=== PATIENT | female | born 1970 | race Caucasian/White ===

== ENCOUNTER → 2016-06-12 | Outpatient (CLI) | payer OTHER ==
[~2016-06-12] MED LIST: ALEVE220 MG PO; ASPIR-LOW81 MG PO; ATORVASTATIN CA80 MG PO; BEE POLLEN550 MG PO; CLOPIDOGREL75 MG PO; CYMBALTA60 MG PO; DAILY VALUE1 EACH PO; FISH OIL PO; KLONOPIN0.5 M1 PO; LOPRESSOR25 MG PO; MAGNESIUM400 M1 PO; NEURONTIN800 MG PO; NICOTINE PATCH1 EAC2 TD; NITROSTAT0.4 MG SL; OXYCODONE-APAP1 EACH PO; PROAIR HFA8.5 GM IH; PROTONIX40 MG PO; SUBOXONE 8 MG-1 EAC2 SL; TYLENOL REGULA325 MG PO
== END | disposition home or self-care (01) ==
LOC: RAD 10:00
DX: I65.22 Occlusion and stenosis of left carotid artery (principal); Z98.890 Other specified postprocedural states; E04.1 Nontoxic single thyroid nodule; R59.0 Localized enlarged lymph nodes
CPT/HCPCS: 93880

== ENCOUNTER → 2016-07-12 | Outpatient (CLI) | payer OTHER | END | disposition home or self-care (01) | LOC: RAD 06-19 11:00 | DX: I65.22 Occlusion and stenosis of left carotid artery (principal); R94.39 Abnormal result of other cardiovascular function study; Z98.890 Other specified postprocedural states | CPT/HCPCS: 70496; 70498 ==

== ENCOUNTER 2016-09-27 12:26 | Observation (INO) | payer OTHER ==
[~2016-09-27] VITALS: Ht 157.5 cm; Wt 85.0 kg
[2016-09-27 15:45] LABS: ADD MIUA? YES; BILIRUBIN NEGATIVE; BLOOD NEGATIVE; COLOR YELLOW ((YELLOW)); GLUCOSE (STRIP) NEGATIVE; KETONES NEGATIVE; LEUKOCYTES NEGATIVE; NITRITE NEGATIVE; PROTEIN (STRIP) NEGATIVE; UROBILINOGEN 0.2 MG/DL (0.2-1.0)
[2016-09-27 15:57] LABS: EOSINOPHIL (%) 4.1 % (0-5); EOSINOPHIL COUNT 0.3 K/uL (0-0.3); HEMATOCRIT 35.7 % (36.0-46.0); IMMATURE GRANULOCYTE (%) 0.1 % (0.0-0.7); INSTRUMENT ABS NEUTROPHIL CT 4.5 K/uL; LYMPHOCYTE COUNT 1.6 K/uL (1.0-2.8); MCH 25.6 PG (29.0-34.0); MCHC 31.7 G/DL (30.0-36.0); MEAN PLAT.VOLUME 10.1 uM^3 (9.5-12.4); MONOCYTE (%) 5.7 % (3-12); MONOCYTE COUNT 0.4 K/uL (0-0.8); NEUTROPHIL (%) 66.4 % (45-76); NEUTROPHIL COUNT 4.5 K/uL (1.8-6.4); PLATELET COUNT 251 K/uL (156-360); RBC DIS.WIDTH-CV 13.5 % (11.8-14.6); RBC DIS.WIDTH-SD 39.7 % (39-53); RED BLOOD COUNT 4.41 M/uL (3.80-5.20); WHITE BLOOD COUNT 6.8 K/uL (4.1-10.2)
[2016-09-27 16:07] LABS: CHLORIDE 104 mEq/L (99-109); SODIUM 140 mEq/L (136-147)
[2016-09-27 16:09] LABS: GLUCOSE 116 mg/dL (70-99)
[2016-09-27 16:10] LABS: ANION GAP 11 MEQ/L (2-14)
[2016-09-27 16:11] LABS: TOTAL BILIRUBIN 0.4 mg/dL (0.0-1.0)
[2016-09-27 16:12] LABS: EPITHELIAL CELLS RARE /HPF; RED BLOOD CELLS RARE /HPF (0-5); WHITE BLOOD CELLS 0-5 /HPF (0-5)
[2016-09-27 16:12] LABS: ALKALINE PHOSPHATASE 61 IU/L (3-129)
[2016-09-27 16:13] LABS: AMORPHOUS URATES CRYSTALS 2+; BACTERIA 1+ /HPF; CASTS NONE SEEN /LPF; CRYSTALS PRESENT; MUCUS NONE SEEN /LPF; UCUL ADDED? NO
[2016-09-27 16:13] LABS: GFR ESTIMATE (CALCULATED) > 59 mL/min/
[2016-09-27 16:14] LABS: UREA NITROGEN (BUN) 10 mg/dL (9-23)
[2016-09-27 16:18] LABS: TROP-I INTERPRETATION NEGATIVE; TROPONIN-I < 0.01 ng/mL (0.0-0.30)
[2016-09-27 16:21] LABS: QUANTITATIVE HCG < 4.0 MIU/ML
[2016-09-27 16:42] LABS: SAMPLE HEMOLYSIS CHECK 0; SAMPLE ICTERIC CHECK 0; SAMPLE LIPEMIA CHECK 0
[2016-09-27 16:54] LABS: D-DIMER ELISA 2.59 mg/L FEU (< 0.57)
[2016-09-27 17:39] LABS: ERTH.SED.RATE 33 MM/HR (0-20)
[2016-09-27] MEDS ORDERED: PRAVACHOL80 MG PO (21:55)
[2016-09-27] MEDS ORDERED: PLAVIX75 MG PO (21:55)
[2016-09-27] MEDS ORDERED: LO-DOSE ASPIRIN81 M2 PO (21:56)
[2016-09-27] MEDS ORDERED: NAPROXEN500 MG PO (21:56)
[2016-09-27] MEDS ORDERED: LYRICA100 MG PO (21:57)
[2016-09-27] MEDS ORDERED: HYDROCHLOROTHIA25 MG PO (21:59)
[2016-09-27] MEDS ORDERED: LISINOPRIL5 MG PO (21:59)
[2016-09-27] MEDS ORDERED: FISH OIL 1,0001 EAC7 PO ×2 (21:59)
[2016-09-27] MEDS ORDERED: TUMERIC PO (21:59)
[2016-09-27] MEDS ORDERED: CYANOCOBALAM1000 MCG PO (22:00)
[2016-09-27] MEDS ORDERED: ERGOCALCIF50000 UNIT PO (22:00)
[2016-09-27] MEDS ORDERED: CO Q-1050 MG PO (22:00)
[2016-09-27] MEDS ORDERED: CLONAZEPAM0.5 MG PO (22:01)
[2016-09-28 00:26] VITALS: BP 146/83
[2016-09-28 01:29] LABS: TROP-I INTERPRETATION NEGATIVE; TROPONIN-I < 0.01 ng/mL (0.0-0.30)
[2016-09-28 04:19] VITALS: BP 100/57
[2016-09-28 05:26] LABS: HEMATOCRIT 30.4 % (36.0-46.0); MCH 26.5 PG (29.0-34.0); MCHC 32.2 G/DL (30.0-36.0); MCV 82.2 FL (83-99); MEAN PLAT.VOLUME 10.3 uM^3 (9.5-12.4); PLATELET COUNT 222 K/uL (156-360); RBC DIS.WIDTH-CV 13.8 % (11.8-14.6); RBC DIS.WIDTH-SD 40.7 % (39-53); WHITE BLOOD COUNT 5.5 K/uL (4.1-10.2)
[2016-09-28 05:45] LABS: TROP-I INTERPRETATION NEGATIVE; TROPONIN-I < 0.01 ng/mL (0.0-0.30)
[2016-09-28 06:07] LABS: ANION GAP 8 MEQ/L (2-14); CHLORIDE 103 MEQ/L (99-109); GFR ESTIMATE (CALCULATED) > 59 mL/min/; GLUCOSE 114 mg/dL (70-99); POTASSIUM 3.7 MEQ/L (3.7-5.4); SAMPLE HEMOLYSIS CHECK 0; SAMPLE ICTERIC CHECK 0; SAMPLE LIPEMIA CHECK 0; SODIUM 140 MEQ/L (136-147); UREA NITROGEN (BUN) 11 mg/dL (9-23)
[2016-09-28 07:28] VITALS: BP 99/51
[2016-09-28 11:47] VITALS: BP 92/54
[2016-09-28] MEDS ORDERED: BUPROPION XL150 MG PO (14:37)
[2016-09-30 15:49] LABS: TOXOPLASMA IgG+ <7.20 IU/mL (<7.20)
[2016-09-30 16:50] LABS: TOXOPLASMA IgM (ACUTE ONLY)+ <8.00 AU/mL (<8.00)
== END 2016-09-28 16:21 | disposition home or self-care (01) ==
LOC: EME 12:26 → 5WEST 22:46 → EDOF 22:46 → 5WEST 09-28 00:15
PROVIDERS: Emergency Medicine; Hospitalist
DX: R07.89 Other chest pain (principal); J81.1 Chronic pulmonary edema; L98.9 Disorder of the skin and subcutaneous tissue, unspecified; G89.29 Other chronic pain; F33.1 Major depressive disorder, recurrent, moderate; I10 Essential (primary) hypertension; D64.9 Anemia, unspecified; I25.10 Atherosclerotic heart disease of native coronary artery without angina pectoris; F90.9 Attention-deficit hyperactivity disorder, unspecified type; E66.9 Obesity, unspecified; I25.2 Old myocardial infarction; E78.5 Hyperlipidemia, unspecified; I65.29 Occlusion and stenosis of unspecified carotid artery; Z88.5 Allergy status to narcotic agent; F17.210 Nicotine dependence, cigarettes, uncomplicated; Z56.0 Unemployment, unspecified; Z91.030 Bee allergy status
CPT/HCPCS: 71020; 71275; 80048; 80053; 81003; 83880; 84484; 84702; 85025; 85027; 85379; 85651; 86140; 86777 90; 86778 90; 87070; 87075; 87205; 93005; 99202; 99281; 99285; G0378; J0572; J1940; J3010; J7040